=== PATIENT | female | born 1955 | race Hispanic/Latino ===

== ENCOUNTER → 2018-08-05 | Outpatient (CLI) | payer OTHER ==
--- NOTE | 2018-08-07 20:01 | Diagnostic Imaging Report ---
History: Back pain after fall in July 04, 2018 Comparison studies: None Technique: Sagittal, coronal and axial T2 , sagittal T1 and IR, axial spin density oblique. Intravenous contrast: None Findings: Number of lumbar vertebral bodies:5. L5 is sacralized. Alignment: Normal lordosis.No scoliosis. Soft tissues: No T2 hyperintense inflammatory changes. Paraspinal muscles: No signal abnormalities. No atrophy. Lower thoracic cord:Normal in signal and morphology. The tip of the conus is at T12-L1. Cauda equina: No masses. No arachnoiditis. Vertebrae: Normal in height and signal intensity. No compression fractures, infection or neoplasm. It is not clear whether there are defects in the pars of L5. There is noted the Degenerative changes: L1-L2: No abnormalities. L2-L3: No abnormalities. L3-L4: Minimally degenerated disc (loss of disc space T2 signal). Left asymmetric disc bulge. Patent spinal canal and foramina. No disc herniation. L4-L5: Normal disc. Right asymmetric disc bulge. Patent spinal canal and foramina. No disc herniation. L5-S1: Mildly degenerated disc (slight decreased in height and T2 signal). A 3 mm right central disc protrusion indents the thecal sac, abuts but does not compress the right S1 nerve root. Patent spinal canal and foramina. Mild bilateral facet arthrosis without enteritis. Partially visualized sacrum: No signal abnormalities. IMPRESSION: 1. Mildly degenerated disc at L5-S1. A 3 mm right central protrusion abuts but does not compress the right S1 nerve root. Mild superimposed facet arthrosis without synovitis at this level. 2. Otherwise, no significant abnormalities. Signed by: Dr. Edy aKy M.D. on 08/07/2018 7:55 PM
== END ==
LOC: MRI 15:07
PROVIDERS: ATTEND Specialist
DX: M51.26 Other intervertebral disc displacement, lumbar region (principal)
CPT/HCPCS: 72148